=== PATIENT | female | born 1975 | race Caucasian/White ===

== ENCOUNTER 2019-05-14 11:59 | Emergency (ER) | payer BC, OTHER ==
[2019-05-14 13:42] VITALS: BP 130/71
--- NOTE | 2019-05-14 13:51 | UC ---
Back Pain HPI - HPI Summary HPI Summary: Patient is 43-year-old female presenting with lumbar back pain mostly on the right side since last night after she "bent down and turned her back funny." Notes spasming. States pain is worse with movement and ambulating. Denies radiating pain. Denies any leg weakness. Denies neck pain. Denies numbness and tingling. Denies incontinence or changes in urination or bowel movements. States she took 800 mg of ibuprofen this morning without much relief. She has also tried heating. Patient states she is still able to ambulate. - History of Current Complaint Chief Complaint: UCBackPain Stated Complaint: LOWER BACK PAIN Hx Obtained From: Patient Hx Last Menstrual Period: 04/2019 Onset/Duration: Sudden Onset Timing: Constant Severity Initially: Severe Severity Currently: Severe Pain Intensity: 8 - Allergies/Home Medications Allergies/Adverse Reactions: Allergies Allergy/AdvReac Type Severity Reaction Status Date / Time seasonal allergy Allergy Congestion Uncoded 05/14/19 13:37 PMH/Surg Hx/FS Hx/Imm Hx Previously Healthy: Yes - Surgical History Surgical History: Yes Surgery Procedure, Year, and Place: tubaligation, gallbladder removed - Family History Known Family History: Positive: Non-Contributory - Social History Alcohol Use: Occasionally Substance Use Type: None Smoking Status (MU): Light Every Day Tobacco Smoker Type: Cigarettes Amount Used/How Often: 5 daily Review of Systems All Other Systems Reviewed And Are Negative: Yes Constitutional: Positive: Negative. Negative: Fever, Chills Respiratory: Positive: Negative. Negative: Shortness Of Breath Cardiovascular: Positive: Negative. Negative: Palpitations, Chest Pain Gastrointestinal: Positive: Negative. Negative: Abdominal Pain, Vomiting, Diarrhea, Nausea Motor: Positive: Negative Musculoskeletal: Positive: Decreased ROM, Myalgia. Negative: Arthralgia, Edema Neurological: Negative: Weakness, Paresthesia, Numbness Physical Exam Triage Information Reviewed: Yes Appearance: Well-Appearing, No Pain Distress, Well-Nourished Vital Signs: Initial Vital Signs Temp 97.9 F 05/14/19 13:37 Pulse 64 05/14/19 13:37 Resp 15 05/14/19 13:37 BP 130/71 05/14/19 13:37 Pulse Ox 100 05/14/19 13:37 Vital Signs Reviewed: Yes Eyes: Positive: Conjunctiva Clear ENT: Positive: Hearing grossly normal Neck: Positive: Supple Respiratory Exam: Normal Respiratory: Positive: Lungs clear, Normal breath sounds, No respiratory distress. Negative: Crackles, Rhonchi, Stridor, Wheezing Cardiovascular Exam: Normal Cardiovascular: Positive: RRR Musculoskeletal: Positive: Strength Intact, No Edema, ROM Limited @ - hip flexion and extension, Other: - no midline tenderness. mild tenderness to palpation of right lower back Neurological: Positive: [facility] - Radiology lumarsacral spine xray Radiology Interpretation Completed By: Radiologist Summary of Radiographic Findings: IMPRESSION: #. 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 Back Pain Course/Dx - Course Course Of Treatment: Discussed spondylosis and degenerative changes found on xray with the patient. I am treating with Flexeril for muscle spasms. Patient states she has taken this in the past without issue. During that she may become drowsy and not to take until she gets home. Instructed her to continue with ibuprofen for pain relief. Told patient to follow up with primary care physician if pain persists. Directed to return to the ED if symptoms worsen. Patient voiced understanding and agreed to treatment plan. - Differential Dx/Diagnosis Provider Diagnosis: Back muscle spasm Discharge ED - Sign-Out/Discharge Documenting (check all that apply): Patient Departure All imaging exams completed and their final reports reviewed: Yes - Discharge Plan Condition: Stable Disposition: HOME Prescriptions: Cyclobenzaprine TAB* [Flexeril 10 MG TAB*] 10 mg PO TID PRN #21 tab PRN Reason: Spasms - Back Patient Education Materials: Muscle Spasm (ED) Referrals: Dino Kay MD [Primary Care Provider] - If Needed Additional Instructions: As discussed, your xrays did not show any fractures. Take Flexeril as prescribed for muscle spasms. This medication may make you drowsy, so do not drive or operate heavy machinery while taking it. Rest, heat the area, and take ibuprofen as directed to help alleviate pain symptoms. Refrain from strenuous physical activity until pain has resolved. Follow up with you primary care physician if symptoms do not resolve. Continue the emergency room if he experiences severe pain, leg weakness, numbness and tingling, changes in urination or bowel movements, nausea, or vomiting. - Billing Disposition and Condition Condition: STABLE Disposition: Home
== END 2019-05-14 14:45 | disposition home or self-care (01) ==
LOC: UCCORT 11:59
DX: M62.830 Muscle spasm of back (principal); M54.5 Low back pain; Z91.09 Other allergy status, other than to drugs and biological substances; F17.210 Nicotine dependence, cigarettes, uncomplicated
CPT/HCPCS: 72110; 99202; G0463